=== PATIENT | male | born 1995 | race Hispanic/Latino ===

== ENCOUNTER 2018-03-01 13:16 | Emergency (ER) | payer SELFPAY ==
[2018-03-01 14:09] LABS: #Basophils 0.1 thou/uL (0.0-0.2); #Eosinphils 0.1 thou/uL (0.0-0.7); #Lymphocytes 1.7 thou/uL (1.20-3.40); #Neutrophils 8.3 thou/uL (1.40-6.50); %Basophils 0.7 % (0.0-1.0); %Eosinophils 0.5 % (0.0-10.0); %Lymphocytes 15.1 % (21.0-51.0); %Monocytes 8.8 % (0.0-10.0); %Neutrophils 74.8 % (42.0-75.0); Hemoglobin 16.2 g/dL (14.0-18.0); Mean Corpuscular HGB CONC 33.9 g/dL (32.0-36.0); Mean Corpuscular Hemoglobin 30.6 pg (27.0-31.0); Mean Corpuscular Volume 90.3 fL (78.0-98.0); Mean Platelet Volume 7.9 fL (7.4-10.4); Platelet Count 308 thou/uL (130-400); RBC Distribution Width 12.2 % (11.5-14.5)
[2018-03-01 14:29] LABS: Bilirubin Small (Negative); Blood, Urine Small (Negative); Clarity TURBID (Clear); Glucose, Urine (Dipstick) Negative (Negative); Leukocyte Small (Negative); Nitrite Negative (Negative); Protein, Urine (Dipstick) 300 mg/dL (Neg-Trace); Specific Gravity, Urine 1.031 (1.002-1.036)
[2018-03-01 14:31] LABS: ALT (SGPT) 59 U/L (8-55); AST (SGOT) 48 U/L (5-34); Albumin 5.4 g/dL (3.5-5.0); Alkaline Phosphatase 89 U/L (40-150); Anion Gap 19 mmol/L (10-20); BUN (Urea Nitrogen) 22 mg/dL (8.9-20.6); Bilirubin, Total 1.2 mg/dL (0.2-1.2); CK (CPK) 671 U/L (30-200); Calc. Creatinine Clearance 0 mL/min (70-130); Calcium 10.3 mg/dL (7.8-10.44); Carbon Dioxide 19 mmol/L (22-29); Chloride 102 mmol/L (98-107); Estimated GFR-MDRD 44; Globulin 3.6 g/dL (2.4-3.5); Glucose 116 mg/dL (70-105); Lipase 20 U/L (8-78); Potassium 3.7 mmol/L (3.5-5.1); Sodium 136 mmol/L (136-145)
[2018-03-01 14:32] LABS: Bacteria/HPF None Seen HPF (None Seen)
[2018-03-01 14:33] LABS: Pathc Cast-AUWi Flag 27.91 (0-2.49); Yeast-AUWi Flag 27.4 (0-25.0)
[2018-03-01 14:42] LABS: Hyaline Casts/LPF >50 HYALINE CAST LPF (0-3 Hyaline); RBC/HPF 0-3 HPF (0-3)
[2018-03-01 14:43] LABS: Crystals/HPF 1+ AMORPH URATES HPF (Negative)
[2018-03-01 14:44] LABS: Renal Epithelial None Seen HPF (0-3); Transitional Epithelial NONE SEEN HPF (0-3)
== END 2018-03-01 16:26 | disposition home or self-care (01) ==
LOC: ERS 13:16
DX: T67.5XXA Heat exhaustion, unspecified, initial encounter (principal); N28.9 Disorder of kidney and ureter, unspecified
CPT/HCPCS: 36415; 80053; 81003; 81015; 82550; 83690; 85025; 96360; 96361

== ENCOUNTER 2019-04-03 14:57 | Emergency (ER) | payer SELFPAY ==
[2019-04-03 15:27] LABS: #Basophils 0.1 thou/uL (0.0-0.2); #Eosinphils 0.1 thou/uL (0.0-0.7); #Lymphocytes 2.3 thou/uL (1.20-3.40); #Monocytes 0.5 thou/uL (0.11-0.59); #Neutrophils 2.9 thou/uL (1.40-6.50); %Basophils 1.3 % (0.0-1.0); %Eosinophils 2.5 % (0.0-10.0); %Lymphocytes 39.3 % (21.0-51.0); %Monocytes 8.3 % (0.0-10.0); %Neutrophils 48.6 % (42.0-75.0); Hemoglobin 15.8 g/dL (14.0-18.0); Mean Corpuscular HGB CONC 34.1 g/dL (32.0-36.0); Mean Corpuscular Hemoglobin 29.9 pg (27.0-31.0); Mean Corpuscular Volume 87.7 fL (78.0-98.0); Mean Platelet Volume 10.4 fL (7.4-10.4); Platelet Count 203 thou/uL (130-400); RBC Distribution Width 11.7 % (11.5-14.5); White Blood Cell (WBC) Count 5.9 thou/uL (4.8-10.8)
[2019-04-03 15:47] LABS: ALT (SGPT) 39 U/L (8-55); AST (SGOT) 27 U/L (5-34); Albumin 4.7 g/dL (3.5-5.0); Alkaline Phosphatase 60 U/L (40-150); Anion Gap 14 mmol/L (10-20); BUN (Urea Nitrogen) 4 mg/dL (8.9-20.6); Bilirubin, Total 0.6 mg/dL (0.2-1.2); Calc. Creatinine Clearance 0 mL/min (70-130); Calcium 9.7 mg/dL (7.8-10.44); Carbon Dioxide 25 mmol/L (22-29); Chloride 104 mmol/L (98-107); Estimated GFR-MDRD Greater than 90; Globulin 3.1 g/dL (2.4-3.5); Glucose 118 mg/dL (70-105); Lipase 22 U/L (8-78); Potassium 3.1 mmol/L (3.5-5.1); Protein, Total 7.8 g/dL (6.0-8.3); Sodium 140 mmol/L (136-145)
[2019-04-03] MEDS ORDERED: Potassium Chloride 20 MEQ TAB ONE (18:20)
[2019-04-03 18:26] LABS: Bacteria/HPF None Seen HPF (None Seen); Bilirubin Negative (Negative); Blood, Urine Trace (Negative); Clarity Turbid (Clear); Glucose, Urine (Dipstick) Normal (Negative); Leukocyte Negative Leu/uL (Negative); Nitrite Negative (Negative); Protein, Urine (Dipstick) 200 mg/dL (Neg-Trace); Squamous Epithelial 0-3 HPF (0-3); Urobilinogen 3 mg/dL (Less than 2)
--- NOTE | 2019-04-03 19:24 | CT ---
CT ABDOMEN AND PELVIS: 04/03/2019 HISTORY: Right upper quadrant pain. Epigastric pain. COMPARISON: 08/08/2013 TECHNIQUE: Axial CT imaging at 5 mm intervals, from the lung bases through the pubic symphysis, without contrast . Coronal reformatted imaging obtained. FINDINGS: The lack of contrast media limits assessment of the viscera, bowel, and vascular structures, and for lymphadenopathy. The imaged lung bases are unremarkable. There is no free intraperitoneal air. There is hypodensity within the anterior aspect of the liver, along the course of the falciform ligam ent, suggesting a focal area of fatty infiltration. Cholecystectomy clips are present. The spleen, pancreas, adrenal glands, and kidneys appear unremarkable. No evidence for nephrolithiasis or obstru ctive uropathy. There is a focal area of mild sigmoid colonic wall thickening. There is diverticulosis in this regio n. In addition, there is mild stranding of the adjacent pericolonic fat. This is suspicious for mil d sigmoid diverticulitis. No evidence for bowel obstruction. The appendix is unremarkable. Review of the osseous structures demonstrates no acute findings. IMPRESSION: Findings suggesting mild acute sigmoid diverticulitis. No evidence for nephrolithiasis or obstructiv e uropathy. POS: [facility]
== END 2019-04-03 19:45 | disposition home or self-care (01) ==
LOC: ERS 14:57
DX: K57.32 Diverticulitis of large intestine without perforation or abscess without bleeding (principal); E87.6 Hypokalemia; R31.9 Hematuria, unspecified; F41.9 Anxiety disorder, unspecified
CPT/HCPCS: 36415; 74176; 80053; 81003; 81015; 83690; 85025; 87086; 96360

== ENCOUNTER 2019-06-27 14:51 | Emergency (ER) | payer SELFPAY ==
--- NOTE | 2019-06-27 15:49 | RAD ---
Portable frontal chest radiograph: 06/27/2019 COMPARISON: None HISTORY: Intermittent chest pain FINDINGS: Lungs are clear. Heart and mediastinal contours appear within normal limits. IMPRESSION: No acute findings.
[2019-06-27 15:57] LABS: #Basophils 0.1 thou/uL (0.0-0.2); #Eosinphils 0.1 thou/uL (0.0-0.7); #Lymphocytes 1.7 thou/uL (1.20-3.40); #Monocytes 0.7 thou/uL (0.11-0.59); #Neutrophils 4.9 thou/uL (1.40-6.50); %Basophils 0.8 % (0.0-1.0); %Eosinophils 0.8 % (0.0-10.0); %Lymphocytes 23.2 % (21.0-51.0); %Monocytes 8.9 % (0.0-10.0); %Neutrophils 66.3 % (42.0-75.0); Mean Corpuscular HGB CONC 33.6 g/dL (32.0-36.0); Mean Corpuscular Hemoglobin 30.6 pg (27.0-31.0); Mean Corpuscular Volume 91.1 fL (78.0-98.0); Mean Platelet Volume 8.6 fL (7.4-10.4); Platelet Count 186 thou/uL (130-400); White Blood Cell (WBC) Count 7.4 thou/uL (4.8-10.8)
[2019-06-27 16:16] LABS: ALT (SGPT) 21 U/L (8-55); AST (SGOT) 22 U/L (5-34); Albumin 4.5 g/dL (3.5-5.0); Alkaline Phosphatase 76 U/L (40-110); Anion Gap 14 mmol/L (10-20); BUN (Urea Nitrogen) 10 mg/dL (8.9-20.6); Bilirubin, Total 0.9 mg/dL (0.2-1.2); CK (CPK) 110 U/L (30-200); Calc. Creatinine Clearance 0 mL/min (70-130); Calcium 9.5 mg/dL (7.8-10.44); Carbon Dioxide 26 mmol/L (22-29); Chloride 100 mmol/L (98-107); Estimated GFR-MDRD Greater than 90; Globulin 2.8 g/dL (2.4-3.5); Glucose 100 mg/dL (70-105); Lipase 12 U/L (8-78); Potassium 3.3 mmol/L (3.5-5.1); Protein, Total 7.3 g/dL (6.0-8.3); Sodium 137 mmol/L (136-145)
== END 2019-06-27 16:43 | disposition home or self-care (01) ==
LOC: ERS 14:51
DX: R07.9 Chest pain, unspecified (principal); F41.9 Anxiety disorder, unspecified
CPT/HCPCS: 36415; 71045; 80053; 82550; 83690; 83880; 84484; 85025; 93005; 94760

== ENCOUNTER 2020-07-04 22:30 | Emergency (ER) | payer SELFPAY ==
[2020-07-04] MEDS ORDERED: Lorazepam 2 MG/ML VIAL ONE (23:49)
[2020-07-05 00:02] LABS: Acetaminophen Less than 6.0 mcg/mL (10.0-30.0); Alcohol Less than 10 mg/dL (Less than 10); Salicylate Less than 8.0 mg/dL (15.0-30.0)
[2020-07-05 00:12] LABS: Amphetamine Detected (NotDetected); Barbiturates Screen Not Detected (NotDetected); Benzodiazepine Screen Not Detected (NotDetected); Cocaine Metabolite Screen Detected (NotDetected); Medtox Control Line Valid? VALID (VALID); Medtox Reader # READER 4; Methadone Not Detected (NotDetected); Methamphetamine Detected (NotDetected); Opiate Screen Not Detected (NotDetected); Oxycodone Screen Not Detected (NotDetected); Phencyclidine (PCP) Not Detected (NotDetected); THC/Cannabinoid Screen Detected (NotDetected); Tricyclic Screen Not Detected (NotDetected)
[2020-07-05 01:43] LABS: Hemoglobin 16.2 g/dL (14.0-18.0); Mean Corpuscular HGB CONC 35.1 g/dL (32.0-36.0); Mean Corpuscular Hemoglobin 31.7 pg (27.0-31.0); Mean Corpuscular Volume 90.4 fL (78.0-98.0); Mean Platelet Volume 9.3 fL (7.4-10.4); Platelet Count 156 thou/uL (130-400); RBC Distribution Width 13.1 % (11.5-14.5)
[2020-07-05 01:45] LABS: ALT (SGPT) 97 U/L (8-55); AST (SGOT) 408 U/L (5-34); Albumin 4.5 g/dL (3.5-5.0); Alkaline Phosphatase 60 U/L (40-110); Anion Gap 24 mmol/L (10-20); BUN (Urea Nitrogen) 28 mg/dL (8.9-20.6); Bilirubin, Total 1.8 mg/dL (0.2-1.2); Calc. Creatinine Clearance 0 mL/min (70-130); Carbon Dioxide 14 mmol/L (22-29); Chloride 97 mmol/L (98-107); Estimated GFR-MDRD 37; Globulin 3.5 g/dL (2.4-3.5); Glucose 74 mg/dL (70-105); Sodium 132 mmol/L (136-145)
[2020-07-05 01:53] LABS: Band 10 % (5-11); Eosinophils 1 % (0-10); Lymphocytes 23 % (21-51); MDiff Complete? YES; Monocytes 9 % (0-10); Neutrophil 56 % (42-75); White Blood Cell (WBC) Count 20.7 thou/uL (4.8-10.8)
[2020-07-05 02:39] LABS: Bacteria/HPF None Seen HPF (None Seen); Bilirubin Negative (Negative); Blood, Urine 3+ (Negative); Clarity Turbid (Clear); Glucose, Urine (Dipstick) Normal (Negative); Ketone, Urine 60 mg/dL (Negative); Leukocyte Negative Leu/uL (Negative); Nitrite Negative (Negative); Protein, Urine (Dipstick) 100 mg/dL (Neg-Trace); RBC/HPF 0-3 HPF (0-3); Specific Gravity, Urine 1.019 (1.002-1.036); Squamous Epithelial 0-3 HPF (0-3); Urobilinogen Normal mg/dL (Less than 2); pH, Urine 5.5 (5.0-9.0)
[2020-07-05] MEDS ORDERED: Lorazepam 2 MG/ML VIAL ONE (03:28)
[2020-07-05 12:47] LABS: SARS-CoV-2 MS2 Positive; SARS-CoV-2 N Gene Negative; SARS-CoV-2 S Gene Negative; SARS-CoV-2 by NAA Not Detected (NotDetected); SARS-CoV-2 orf1ab Negative
--- NOTE | 2020-07-06 13:13 | EKG ---
Test Reason : Blood Pressure : / mmHG Vent. Rate : 098 BPM Atrial Rate : 098 BPM P-R Int : 152 ms QRS Dur : 088 ms QT Int : 356 ms P-R-T Axes : 070 129 072 degrees QTc Int : 454 ms Normal sinus rhythm Right axis deviation Abnormal ECG Confirmed by GUADALUPE HEATH ([id number]), continuity editor MERCED BRYAN ([id number]) on 07/06/2020 1:13:05 PM Referred By: Confirmed By:GUADALUPE HEATH
== END 2020-07-05 04:04 | disposition short-term general hospital (02) ==
LOC: ERS 22:30
DX: M62.82 Rhabdomyolysis (principal); E86.0 Dehydration; F19.10 Other psychoactive substance abuse, uncomplicated; Z20.828 Contact with and (suspected) exposure to other viral communicable diseases; F41.9 Anxiety disorder, unspecified
CPT/HCPCS: 36415; 80053; 80306; 80307; 81003; 81015; 82550; 84443; 85025; 87635; 93005; 96374; 96376; J2060; U0003

== ENCOUNTER 2022-04-17 15:11 | Inpatient (IN) | payer SELFPAY ==
[2022-04-17] MEDS ORDERED: Iopamidol-370 76% 500 ML 1 ML ONE (15:26)
[2022-04-17 15:58] LABS: Hemoglobin 12.2 g/dL (14.0-18.0); Mean Corpuscular HGB CONC 32.2 g/dL (32.0-36.0); Mean Corpuscular Hemoglobin 28.8 pg (27.0-31.0); Mean Corpuscular Volume 89.5 fL (78.0-98.0); Mean Platelet Volume 9.5 fL (7.4-10.4); Platelet Count 402 thou/uL (130-400); RBC Distribution Width 12.9 % (11.5-14.5); Red Blood Cell (RBC) Count 4.24 mill/uL (4.70-6.10); White Blood Cell (WBC) Count 17.7 thou/uL (4.8-10.8)
[2022-04-17 16:18] LABS: ALT (SGPT) 30 U/L (8-55); AST (SGOT) 45 U/L (5-34); Albumin 3.4 g/dL (3.5-5.0); Alkaline Phosphatase 166 U/L (40-110); Anion Gap 18 mmol/L (10-20); BUN (Urea Nitrogen) 7 mg/dL (8.9-20.6); Calc. Creatinine Clearance 0 mL/min (70-130); Calcium 9.1 mg/dL (7.8-10.44); Carbon Dioxide 28 mmol/L (22-29); Chloride 95 mmol/L (98-107); Estimated GFR 112; Globulin 4.5 g/dL (2.4-3.5); Glucose 148 mg/dL (70-105); Lipase 14 U/L (8-78); Potassium 3.5 mmol/L (3.5-5.1); Protein, Total 7.9 g/dL (6.0-8.3); Sodium 137 mmol/L (136-145)
[2022-04-17 16:19] LABS: Band 2 % (5-11); Lymphocytes 8 % (21-51); MDiff Complete? YES; Monocytes 9 % (0-10); Neutrophil 80 % (42-75); Platelet Morphology Comment Appears Increased; RBC Morphology Normal
[2022-04-17] MEDS ORDERED: Ketorolac Tromethamine 30 MG/ML VIAL ONE (17:24)
[2022-04-17] MEDS ORDERED: Ondansetron PF 4 MG/2 ML Vial ONE (17:24)
[2022-04-17] MEDS ORDERED: Morphine 4 MG/ML VIAL ONE (18:10)
[2022-04-17] MEDS ORDERED: Piperacillin/Tazobactam 4.5 GM VIAL ONE (18:10)
[2022-04-17] MEDS: Lactated Ringer's 1,000 ML IV SCH (20:49)
[2022-04-17] MEDS: Famotidine 20 MG TAB PO SCH (21:02)
[2022-04-17 21:05] LABS: SARS-CoV-2 NAA Rapid Test Not Detected (NotDetected)
[2022-04-17 21:09] VITALS: BMI 33.7
[2022-04-17] MEDS: Morphine 2 MG/ML VIAL SLOW IVP PRN (21:55)
[2022-04-17] MEDS: Piperacillin/Tazobactam 3.375 GM in Sodium Chloride 0.9% 100 ML IVPB SCH (21:58)
[2022-04-18] MEDS: Acetaminophen 325 MG TAB PO PRN ×3 (01:48→20:39)
[2022-04-18] MEDS ORDERED: Morphine 4 MG/ML VIAL SLOW IVP SCH (03:00)
[2022-04-18] MEDS: Lactated Ringer's 1,000 ML IV SCH ×3 (04:15→19:34)
[2022-04-18 05:38] LABS: #Lymphocytes 1.9 thou/uL (1.20-3.40); #Monocytes 1.5 thou/uL (0.11-0.59); #Neutrophils 10.1 thou/uL (1.40-6.50); %Eosinophils 0.3 % (0.0-10.0); %Lymphocytes 14.2 % (21.0-51.0); %Neutrophils 74.5 % (42.0-75.0); Mean Corpuscular HGB CONC 32.2 g/dL (32.0-36.0); Mean Corpuscular Hemoglobin 28.9 pg (27.0-31.0); Mean Corpuscular Volume 89.8 fL (78.0-98.0); Mean Platelet Volume 9.1 fL (7.4-10.4); Platelet Count 338 thou/uL (130-400); RBC Distribution Width 12.7 % (11.5-14.5); Red Blood Cell (RBC) Count 3.46 mill/uL (4.70-6.10); White Blood Cell (WBC) Count 13.5 thou/uL (4.8-10.8)
[2022-04-18] MEDS: Piperacillin/Tazobactam 3.375 GM in Sodium Chloride 0.9% 100 ML IVPB SCH ×3 (05:42→22:04)
[2022-04-18 06:04] LABS: ALT (SGPT) 28 U/L (8-55); AST (SGOT) 36 U/L (5-34); Albumin 2.7 g/dL (3.5-5.0); Alkaline Phosphatase 156 U/L (40-110); Anion Gap 17 mmol/L (10-20); BUN (Urea Nitrogen) 6 mg/dL (8.9-20.6); Bilirubin, Total 0.7 mg/dL (0.2-1.2); Calc. Creatinine Clearance 218 mL/min (70-130); Calcium 8.2 mg/dL (7.8-10.44); Carbon Dioxide 26 mmol/L (22-29); Chloride 98 mmol/L (98-107); Estimated GFR 128; Globulin 3.5 g/dL (2.4-3.5); Glucose 92 mg/dL (70-105); Potassium 3.5 mmol/L (3.5-5.1); Protein, Total 6.2 g/dL (6.0-8.3); Sodium 137 mmol/L (136-145)
[2022-04-18] MEDS: Famotidine 20 MG TAB PO SCH ×2 (08:33→20:40)
[2022-04-18] MEDS: Morphine 2 MG/ML VIAL SLOW IVP PRN (08:33)
[2022-04-18] MEDS ORDERED: Enoxaparin Sodium 40 MG/0.4 ML SYRINGE SC SCH (09:00)
[2022-04-18 10:30] LABS: INR-International Normal Ratio 1.7; Prothrombin Time 20.4 sec (12.0-14.7)
[2022-04-18] MEDS: oxyCODONE ER 10 MG TAB PO PRN (12:00)
[2022-04-18 18:40] LABS: Troponin I Less than 0.010 ng/mL (< 0.028)
[2022-04-18] MEDS: Ondansetron ODT 4 MG TAB PO PRN (19:34)
[2022-04-18] MEDS: oxyCODONE 5 MG TAB PO PRN (20:40)
[2022-04-19] MEDS: Lactated Ringer's 1,000 ML IV SCH ×4 (05:18→21:10)
[2022-04-19] MEDS: Ibuprofen 600 MG TAB PO PRN ×2 (05:20→17:30)
[2022-04-19 05:36] LABS: #Lymphocytes 1.8 thou/uL (1.20-3.40); #Monocytes 1.5 thou/uL (0.11-0.59); #Neutrophils 9.1 thou/uL (1.40-6.50); %Basophils 0.2 % (0.0-1.0); %Eosinophils 0.2 % (0.0-10.0); %Lymphocytes 14.7 % (21.0-51.0); %Monocytes 11.8 % (0.0-10.0); %Neutrophils 73.2 % (42.0-75.0); Hemoglobin 9.6 g/dL (14.0-18.0); Mean Corpuscular HGB CONC 32.1 g/dL (32.0-36.0); Mean Corpuscular Volume 90.4 fL (78.0-98.0); Mean Platelet Volume 9.3 fL (7.4-10.4); Platelet Count 321 thou/uL (130-400); Red Blood Cell (RBC) Count 3.32 mill/uL (4.70-6.10); White Blood Cell (WBC) Count 12.5 thou/uL (4.8-10.8)
[2022-04-19 06:00] LABS: ALT (SGPT) 21 U/L (8-55); AST (SGOT) 30 U/L (5-34); Albumin 2.7 g/dL (3.5-5.0); Alkaline Phosphatase 124 U/L (40-110); Anion Gap 15 mmol/L (10-20); BUN (Urea Nitrogen) Less than 4 mg/dL (8.9-20.6); Bilirubin, Total 0.5 mg/dL (0.2-1.2); Calc. Creatinine Clearance 231 mL/min (70-130); Calcium 8.2 mg/dL (7.8-10.44); Carbon Dioxide 27 mmol/L (22-29); Chloride 100 mmol/L (98-107); Estimated GFR 130; Globulin 3.5 g/dL (2.4-3.5); Glucose 100 mg/dL (70-105); Potassium 3.4 mmol/L (3.5-5.1); Protein, Total 6.2 g/dL (6.0-8.3); Sodium 139 mmol/L (136-145)
[2022-04-19] MEDS: oxyCODONE ER 10 MG TAB PO PRN ×2 (06:16→21:23)
[2022-04-19] MEDS: Piperacillin/Tazobactam 3.375 GM in Sodium Chloride 0.9% 100 ML IVPB SCH ×3 (06:17→21:11)
[2022-04-19] MEDS: Famotidine 20 MG TAB PO SCH ×2 (09:33→21:10)
[2022-04-19] MEDS: Ondansetron ODT 4 MG TAB PO PRN (10:31)
[2022-04-19] MEDS: oxyCODONE 5 MG TAB PO PRN ×3 (10:31→23:11)
[2022-04-19] MEDS: diphenhydrAMINE 25 MG CAP PO PRN ×2 (13:21→21:23)
[2022-04-19] MEDS ORDERED: Midazolam HCl 2 mg/2 ml Vial ONE (18:19)
[2022-04-19] MEDS ORDERED: Fentanyl 100 MCG/2 ML VIAL ONE (18:19)
[2022-04-19] MEDS: Acetaminophen 325 MG TAB PO PRN (22:59)
[2022-04-20] MEDS: oxyCODONE 5 MG TAB PO PRN ×3 (03:52→16:08)
[2022-04-20] MEDS: Lactated Ringer's 1,000 ML IV SCH (03:55)
[2022-04-20 05:32] LABS: #Lymphocytes 1.6 thou/uL (1.20-3.40); #Monocytes 1.3 thou/uL (0.11-0.59); #Neutrophils 14.5 thou/uL (1.40-6.50); %Basophils 0.2 % (0.0-1.0); %Eosinophils 0.1 % (0.0-10.0); %Lymphocytes 9.3 % (21.0-51.0); %Monocytes 7.2 % (0.0-10.0); %Neutrophils 83.2 % (42.0-75.0); Hemoglobin 10.6 g/dL (14.0-18.0); Mean Corpuscular HGB CONC 31.5 g/dL (32.0-36.0); Mean Platelet Volume 9.2 fL (7.4-10.4); Platelet Count 329 thou/uL (130-400); RBC Distribution Width 12.9 % (11.5-14.5); Red Blood Cell (RBC) Count 3.66 mill/uL (4.70-6.10); White Blood Cell (WBC) Count 17.4 thou/uL (4.8-10.8)
[2022-04-20 05:57] LABS: ALT (SGPT) 37 U/L (8-55); AST (SGOT) 55 U/L (5-34); Albumin 2.9 g/dL (3.5-5.0); Alkaline Phosphatase 140 U/L (40-110); Anion Gap 16 mmol/L (10-20); BUN (Urea Nitrogen) Less than 4 mg/dL (8.9-20.6); Bilirubin, Total 0.8 mg/dL (0.2-1.2); Calc. Creatinine Clearance 227 mL/min (70-130); Calcium 8.5 mg/dL (7.8-10.44); Carbon Dioxide 23 mmol/L (22-29); Chloride 99 mmol/L (98-107); Estimated GFR 129; Globulin 3.6 g/dL (2.4-3.5); Glucose 84 mg/dL (70-105); Potassium 3.4 mmol/L (3.5-5.1); Protein, Total 6.5 g/dL (6.0-8.3); Sodium 135 mmol/L (136-145)
[2022-04-20] MEDS: Piperacillin/Tazobactam 3.375 GM in Sodium Chloride 0.9% 100 ML IVPB SCH ×3 (06:10→22:19)
[2022-04-20] MEDS: Acetaminophen 325 MG TAB PO PRN ×3 (06:17→19:57)
[2022-04-20] MEDS: Ibuprofen 600 MG TAB PO PRN (07:58)
[2022-04-20] MEDS: Famotidine 20 MG TAB PO SCH ×2 (07:58→20:58)
[2022-04-20] MEDS: oxyCODONE ER 10 MG TAB PO SCH (20:58)
[2022-04-20] MEDS ORDERED: oxyCODONE ER 10 MG TAB PO SCH ×2 (21:00)
[2022-04-21] MEDS: diphenhydrAMINE 25 MG CAP PO PRN (01:24)
[2022-04-21] MEDS: Ondansetron ODT 4 MG TAB PO PRN ×2 (01:24→20:44)
[2022-04-21] MEDS: Ibuprofen 600 MG TAB PO PRN (04:31)
[2022-04-21 05:20] LABS: #Lymphocytes 2.3 thou/uL (1.20-3.40); #Monocytes 1.2 thou/uL (0.11-0.59); #Neutrophils 15.5 thou/uL (1.40-6.50); %Basophils 0.1 % (0.0-1.0); %Eosinophils 0.2 % (0.0-10.0); %Lymphocytes 12.1 % (21.0-51.0); %Monocytes 6.3 % (0.0-10.0); %Neutrophils 81.3 % (42.0-75.0); Hemoglobin 9.4 g/dL (14.0-18.0); Mean Corpuscular HGB CONC 31.9 g/dL (32.0-36.0); Mean Corpuscular Volume 90.7 fL (78.0-98.0); Mean Platelet Volume 8.4 fL (7.4-10.4); Platelet Count 355 thou/uL (130-400); RBC Distribution Width 12.9 % (11.5-14.5); Red Blood Cell (RBC) Count 3.25 mill/uL (4.70-6.10); White Blood Cell (WBC) Count 19.1 thou/uL (4.8-10.8)
[2022-04-21 05:40] LABS: ALT (SGPT) 30 U/L (8-55); AST (SGOT) 30 U/L (5-34); Albumin 2.5 g/dL (3.5-5.0); Alkaline Phosphatase 114 U/L (40-110); Anion Gap 16 mmol/L (10-20); BUN (Urea Nitrogen) Less than 4 mg/dL (8.9-20.6); Bilirubin, Total 0.6 mg/dL (0.2-1.2); Calc. Creatinine Clearance 241 mL/min (70-130); Calcium 8.2 mg/dL (7.8-10.44); Carbon Dioxide 26 mmol/L (22-29); Chloride 99 mmol/L (98-107); Estimated GFR 132; Globulin 3.4 g/dL (2.4-3.5); Glucose 88 mg/dL (70-105); Potassium 3.6 mmol/L (3.5-5.1); Protein, Total 5.9 g/dL (6.0-8.3); Sodium 137 mmol/L (136-145)
[2022-04-21] MEDS: oxyCODONE 5 MG TAB PO PRN ×3 (05:49→21:24)
[2022-04-21] MEDS: Piperacillin/Tazobactam 3.375 GM in Sodium Chloride 0.9% 100 ML IVPB SCH ×3 (05:50→22:22)
[2022-04-21] MEDS: oxyCODONE ER 10 MG TAB PO SCH ×2 (08:26→21:22)
[2022-04-21] MEDS: Famotidine 20 MG TAB PO SCH ×2 (08:27→20:44)
[2022-04-21] MEDS ORDERED: Polyethylene Glycol 3350 17 GM Packet PO PRN (13:02)
[2022-04-21] MEDS ORDERED: Senokot 8.6 MG TAB PO PRN (13:02)
[2022-04-21] MEDS: metroNIDAZOLE 500 MG in Premix Bag 1 BAG IVPB SCH ×2 (13:36→22:22)
[2022-04-21] MEDS: Acetaminophen 325 MG TAB PO PRN (20:44)
[2022-04-22] MEDS: Ibuprofen 600 MG TAB PO PRN (04:09)
[2022-04-22 05:01] LABS: #Eosinphils 0.1 thou/uL (0.0-0.7); #Lymphocytes 2.2 thou/uL (1.20-3.40); #Monocytes 1.1 thou/uL (0.11-0.59); #Neutrophils 11.6 thou/uL (1.40-6.50); %Basophils 0.2 % (0.0-1.0); %Eosinophils 0.5 % (0.0-10.0); %Lymphocytes 14.7 % (21.0-51.0); %Monocytes 7.4 % (0.0-10.0); %Neutrophils 77.2 % (42.0-75.0); Hemoglobin 9.5 g/dL (14.0-18.0); Mean Corpuscular Volume 90.8 fL (78.0-98.0); Mean Platelet Volume 8.4 fL (7.4-10.4); Platelet Count 378 thou/uL (130-400); RBC Distribution Width 12.8 % (11.5-14.5); Red Blood Cell (RBC) Count 3.26 mill/uL (4.70-6.10)
[2022-04-22 05:28] LABS: ALT (SGPT) 23 U/L (8-55); AST (SGOT) 24 U/L (5-34); Albumin 2.5 g/dL (3.5-5.0); Alkaline Phosphatase 101 U/L (40-110); Anion Gap 15 mmol/L (10-20); BUN (Urea Nitrogen) Less than 4 mg/dL (8.9-20.6); Bilirubin, Total 0.5 mg/dL (0.2-1.2); Calc. Creatinine Clearance 249 mL/min (70-130); Carbon Dioxide 27 mmol/L (22-29); Chloride 98 mmol/L (98-107); Estimated GFR 133; Globulin 3.4 g/dL (2.4-3.5); Glucose 93 mg/dL (70-105); Potassium 3.4 mmol/L (3.5-5.1); Protein, Total 5.9 g/dL (6.0-8.3); Sodium 137 mmol/L (136-145)
[2022-04-22] MEDS: metroNIDAZOLE 500 MG in Premix Bag 1 BAG IVPB SCH ×3 (06:08→19:40)
[2022-04-22] MEDS: Piperacillin/Tazobactam 3.375 GM in Sodium Chloride 0.9% 100 ML IVPB SCH (06:09)
[2022-04-22] MEDS: Famotidine 20 MG TAB PO SCH ×2 (09:58→22:03)
[2022-04-22] MEDS: oxyCODONE ER 10 MG TAB PO SCH (10:02)
[2022-04-22] MEDS: oxyCODONE 5 MG TAB PO PRN ×2 (10:03→17:29)
[2022-04-22] MEDS: diphenhydrAMINE 25 MG CAP PO PRN ×2 (12:21→22:04)
[2022-04-22] MEDS: Ampicillin/Sulbactam 3 GM in Sodium Chloride 0.9% 100 ML IVPB SCH ×3 (12:21→23:38)
[2022-04-22] MEDS ORDERED: GASTROGRAFIN 30 ML BOT ONE (13:20)
[2022-04-22] MEDS ORDERED: Iopamidol 370 76% 100 ML VIAL ONE (13:20)
[2022-04-22] MEDS ORDERED: Potassium Chloride 20 MEQ TAB PO SCH (14:30)
[2022-04-22] MEDS: Acetaminophen 500 MG TAB PO SCH ×2 (15:33→22:06)
[2022-04-22] MEDS: Ibuprofen 600 MG TAB PO SCH ×2 (15:34→22:05)
[2022-04-23] MEDS: metroNIDAZOLE 500 MG in Premix Bag 1 BAG IVPB SCH ×3 (01:39→17:59)
[2022-04-23] MEDS: oxyCODONE 5 MG TAB PO PRN ×2 (02:46→09:24)
[2022-04-23] MEDS: Ibuprofen 600 MG TAB PO SCH ×3 (05:22→22:00)
[2022-04-23] MEDS: Acetaminophen 500 MG TAB PO SCH ×3 (05:23→21:59)
[2022-04-23] MEDS: Ampicillin/Sulbactam 3 GM in Sodium Chloride 0.9% 100 ML IVPB SCH ×4 (05:24→23:17)
[2022-04-23 05:37] LABS: #Eosinphils 0.1 thou/uL (0.0-0.7); #Lymphocytes 1.2 thou/uL (1.20-3.40); #Monocytes 0.8 thou/uL (0.11-0.59); #Neutrophils 12.4 thou/uL (1.40-6.50); %Basophils 0.1 % (0.0-1.0); %Eosinophils 0.7 % (0.0-10.0); %Lymphocytes 8.5 % (21.0-51.0); %Monocytes 5.8 % (0.0-10.0); %Neutrophils 84.9 % (42.0-75.0); Hemoglobin 10.6 g/dL (14.0-18.0); Mean Corpuscular HGB CONC 31.1 g/dL (32.0-36.0); Mean Corpuscular Hemoglobin 28.6 pg (27.0-31.0); Mean Corpuscular Volume 92.2 fL (78.0-98.0); Mean Platelet Volume 8.7 fL (7.4-10.4); Platelet Count 434 thou/uL (130-400); RBC Distribution Width 12.8 % (11.5-14.5); Red Blood Cell (RBC) Count 3.71 mill/uL (4.70-6.10); White Blood Cell (WBC) Count 14.6 thou/uL (4.8-10.8)
[2022-04-23 06:01] LABS: Albumin 2.6 g/dL (3.5-5.0); Alkaline Phosphatase 104 U/L (40-110); Anion Gap 16 mmol/L (10-20); BUN (Urea Nitrogen) Less than 4 mg/dL (8.9-20.6); Bilirubin, Total 0.5 mg/dL (0.2-1.2); Calc. Creatinine Clearance 253 mL/min (70-130); Calcium 8.4 mg/dL (7.8-10.44); Carbon Dioxide 26 mmol/L (22-29); Chloride 101 mmol/L (98-107); Estimated GFR 134; Globulin 3.9 g/dL (2.4-3.5); Glucose 101 mg/dL (70-105); Potassium 4.3 mmol/L (3.5-5.1); Protein, Total 6.5 g/dL (6.0-8.3); Sodium 139 mmol/L (136-145)
[2022-04-23 06:15] LABS: ALT (SGPT) 21 U/L (8-55); AST (SGOT) 25 U/L (5-34)
[2022-04-23] MEDS: Famotidine 20 MG TAB PO SCH ×2 (09:11→20:21)
[2022-04-23] MEDS: Polyethylene Glycol 3350 17 GM Packet PO SCH (09:11)
[2022-04-23] MEDS: Ondansetron ODT 4 MG TAB PO PRN (09:24)
[2022-04-23] MEDS ORDERED: oxyCODONE 5 MG TAB PO PRN (14:07)
[2022-04-23] MEDS ORDERED: Acetaminophen 500 MG TAB PO SCH (14:15)
[2022-04-23] MEDS: diphenhydrAMINE 25 MG CAP PO PRN (22:00)
[2022-04-24] MEDS: metroNIDAZOLE 500 MG in Premix Bag 1 BAG IVPB SCH ×2 (00:17→08:40)
[2022-04-24] MEDS: Ampicillin/Sulbactam 3 GM in Sodium Chloride 0.9% 100 ML IVPB SCH (05:06)
[2022-04-24] MEDS: Acetaminophen 500 MG TAB PO SCH ×2 (05:06→13:21)
[2022-04-24] MEDS: Ibuprofen 600 MG TAB PO SCH ×2 (05:07→13:22)
[2022-04-24 05:14] LABS: #Eosinphils 0.1 thou/uL (0.0-0.7); #Lymphocytes 2.8 thou/uL (1.20-3.40); #Monocytes 1.2 thou/uL (0.11-0.59); #Neutrophils 8.8 thou/uL (1.40-6.50); %Basophils 0.1 % (0.0-1.0); %Eosinophils 0.9 % (0.0-10.0); %Lymphocytes 21.5 % (21.0-51.0); %Neutrophils 68.5 % (42.0-75.0); Hemoglobin 11.4 g/dL (14.0-18.0); Mean Corpuscular HGB CONC 31.3 g/dL (32.0-36.0); Mean Corpuscular Hemoglobin 28.8 pg (27.0-31.0); Mean Corpuscular Volume 91.9 fL (78.0-98.0); Mean Platelet Volume 8.2 fL (7.4-10.4); Platelet Count 471 thou/uL (130-400); RBC Distribution Width 13.1 % (11.5-14.5); Red Blood Cell (RBC) Count 3.96 mill/uL (4.70-6.10); White Blood Cell (WBC) Count 12.9 thou/uL (4.8-10.8)
[2022-04-24 05:40] LABS: ALT (SGPT) 17 U/L (8-55); AST (SGOT) 14 U/L (5-34); Albumin 2.8 g/dL (3.5-5.0); Alkaline Phosphatase 99 U/L (40-110); Anion Gap 14 mmol/L (10-20); BUN (Urea Nitrogen) 4 mg/dL (8.9-20.6); Bilirubin, Total 0.5 mg/dL (0.2-1.2); Calc. Creatinine Clearance 253 mL/min (70-130); Calcium 8.5 mg/dL (7.8-10.44); Carbon Dioxide 25 mmol/L (22-29); Chloride 103 mmol/L (98-107); Estimated GFR 134; Globulin 3.6 g/dL (2.4-3.5); Glucose 85 mg/dL (70-105); Potassium 3.8 mmol/L (3.5-5.1); Protein, Total 6.4 g/dL (6.0-8.3); Sodium 138 mmol/L (136-145)
[2022-04-24] MEDS: Famotidine 20 MG TAB PO SCH (08:40)
[2022-04-24] MEDS: Polyethylene Glycol 3350 17 GM Packet PO SCH (08:40)
[2022-04-24 08:47] VITALS: BP 130/84; TEMP 97.9
[2022-04-24] MEDS ORDERED: Enoxaparin Sodium 40 MG/0.4 ML SYRINGE SC SCH (09:00)
[2022-04-24] MEDS ORDERED: metroNIDAZOLE 500 MG TAB PO SCH (15:00)
[2022-04-24] MEDS ORDERED: Ciprofloxacin 500 MG TAB PO SCH (20:00)
[2022-04-24] MEDS ORDERED: Amoxicillin/Potassium Clav 875 MG TAB PO SCH (21:00)
== END 2022-04-24 14:14 | disposition home or self-care (01) | DRG 871 ==
LOC: ERS 15:11 → MSONC 18:25
PROVIDERS: ADMIT Student in an Organized Health Care Education/Training Program; ATTEND Student in an Organized Health Care Education/Training Program
PROC: 3E03329 Introduction of Other Anti-infective into Peripheral Vein, Percutaneous Approach (ICD-10-PCS; principal; 2022-04-17)
PROC: 0F923ZZ Drainage of Left Lobe Liver, Percutaneous Approach (ICD-10-PCS; 2022-04-23)
DX: A41.9 Sepsis, unspecified organism (principal); K75.0 Abscess of liver; K57.20 Diverticulitis of large intestine with perforation and abscess without bleeding; K86.1 Other chronic pancreatitis; Z20.822 Contact with and (suspected) exposure to COVID-19; F41.9 Anxiety disorder, unspecified; Z90.49 Acquired absence of other specified parts of digestive tract
CPT/HCPCS: 36415; 47010; 71045; 74177; 77002; 80053; 83605; 83690; 84484; 85025; 85610; 85730; 87040; 87070; 87077; 87177; 87186; 87205; 87328; 87329; 87811; 96361; 96365; 96375; C1729; J0295; J1650; J1885; J2250; J2270; J2405; J2543; J3010; J3490; J7120; Q0162; Q9963; Q9967; U0002

== ENCOUNTER 2022-06-01 15:20 | Inpatient (IN) | payer SELFPAY ==
[~2022-06-01 15:20] MED LIST: Iopamidol 370 76% 50 ML VIAL FS ONE
[2022-06-01 16:06] LABS: #Eosinphils 0.3 thou/uL (0.0-0.7); #Monocytes 0.7 thou/uL (0.11-0.59); #Neutrophils 8.2 thou/uL (1.40-6.50); %Basophils 0.3 % (0.0-1.0); %Eosinophils 2.6 % (0.0-10.0); %Lymphocytes 17.8 % (21.0-51.0); %Monocytes 6.1 % (0.0-10.0); %Neutrophils 73.3 % (42.0-75.0); Hemoglobin 9.7 g/dL (14.0-18.0); Mean Corpuscular HGB CONC 31.9 g/dL (32.0-36.0); Mean Corpuscular Hemoglobin 28.5 pg (27.0-31.0); Mean Corpuscular Volume 89.5 fL (78.0-98.0); Mean Platelet Volume 8.4 fL (7.4-10.4); Platelet Count 356 thou/uL (130-400); RBC Distribution Width 13.6 % (11.5-14.5); White Blood Cell (WBC) Count 11.2 thou/uL (4.8-10.8)
[2022-06-01 16:15] LABS: ALT (SGPT) 10 U/L (8-55); AST (SGOT) 17 U/L (5-34); Albumin 3.7 g/dL (3.5-5.0); Alkaline Phosphatase 96 U/L (40-110); Anion Gap 13 mmol/L (10-20); BUN (Urea Nitrogen) 5 mg/dL (8.9-20.6); Bilirubin, Total 0.3 mg/dL (0.2-1.2); Calc. Creatinine Clearance 0 mL/min (70-130); Calcium 8.8 mg/dL (7.8-10.44); Carbon Dioxide 26 mmol/L (22-29); Chloride 104 mmol/L (98-107); Estimated GFR 124; Glucose 123 mg/dL (70-105); Potassium 4.1 mmol/L (3.5-5.1); Protein, Total 7.7 g/dL (6.0-8.3); Sodium 139 mmol/L (136-145)
[2022-06-01] MEDS ORDERED: Piperacillin/Tazobactam 3.375 GM VIAL ONE (22:30)
[2022-06-01] MEDS ORDERED: Sodium Chloride 0.9% 1,000 ML IV SCH (22:45)
[2022-06-01] MEDS ORDERED: Ondansetron PF 4 MG/2 ML Vial IVP PRN (22:45)
[2022-06-01] MEDS ORDERED: Ondansetron ODT 4 MG TAB SL PRN (22:45)
[2022-06-02] MEDS ORDERED: Ondansetron ODT 4 MG TAB PO PRN (00:48)
[2022-06-02] MEDS ORDERED: Ondansetron PF 4 MG/2 ML Vial IVP PRN (00:48)
[2022-06-02] MEDS ORDERED: hydrOXYzine 25 MG TAB PO SCH (01:00)
[2022-06-02 01:59] VITALS: BMI 32.4
[2022-06-02] MEDS: Acetaminophen 325 MG TAB PO PRN ×2 (02:28→20:40)
[2022-06-02] MEDS: Piperacillin/Tazobactam 3.375 GM in Sodium Chloride 0.9% 100 ML IVPB SCH ×3 (02:29→18:15)
[2022-06-02] MEDS: Lactated Ringer's 1,000 ML IV SCH ×3 (02:31→18:15)
[2022-06-02] MEDS ORDERED: Piperacillin/Tazobactam 3.375 GM in Sodium Chloride 0.9% 100 ML IVPB SCH (03:00)
[2022-06-02 06:13] LABS: #Eosinphils 0.5 thou/uL (0.0-0.7); #Lymphocytes 2.9 thou/uL (1.20-3.40); #Monocytes 0.9 thou/uL (0.11-0.59); #Neutrophils 5.5 thou/uL (1.40-6.50); %Basophils 0.3 % (0.0-1.0); %Eosinophils 4.7 % (0.0-10.0); %Lymphocytes 29.5 % (21.0-51.0); %Monocytes 9.1 % (0.0-10.0); %Neutrophils 56.4 % (42.0-75.0); Hemoglobin 8.8 g/dL (14.0-18.0); Mean Corpuscular Hemoglobin 28.1 pg (27.0-31.0); Mean Corpuscular Volume 90.5 fL (78.0-98.0); Mean Platelet Volume 7.9 fL (7.4-10.4); Platelet Count 330 thou/uL (130-400); RBC Distribution Width 13.8 % (11.5-14.5); Red Blood Cell (RBC) Count 3.15 mill/uL (4.70-6.10); White Blood Cell (WBC) Count 9.8 thou/uL (4.8-10.8)
[2022-06-02 06:23] LABS: ALT (SGPT) 8 U/L (8-55); AST (SGOT) 12 U/L (5-34); Albumin 3.2 g/dL (3.5-5.0); Alkaline Phosphatase 70 U/L (40-110); Anion Gap 13 mmol/L (10-20); BUN (Urea Nitrogen) 6 mg/dL (8.9-20.6); Bilirubin, Total 0.3 mg/dL (0.2-1.2); Calc. Creatinine Clearance 207 mL/min (70-130); Calcium 8.9 mg/dL (7.8-10.44); Carbon Dioxide 25 mmol/L (22-29); Chloride 106 mmol/L (98-107); Estimated GFR 126; Globulin 3.3 g/dL (2.4-3.5); Glucose 97 mg/dL (70-105); Potassium 4.1 mmol/L (3.5-5.1); Protein, Total 6.5 g/dL (6.0-8.3); Sodium 140 mmol/L (136-145)
[2022-06-02 06:37] LABS: Troponin I Less than 0.010 ng/mL (< 0.028)
[2022-06-02] MEDS: hydrOXYzine 25 MG TAB PO PRN (20:41)
[2022-06-03] MEDS: Lactated Ringer's 1,000 ML IV SCH (01:29)
[2022-06-03] MEDS: Piperacillin/Tazobactam 3.375 GM in Sodium Chloride 0.9% 100 ML IVPB SCH ×3 (02:16→18:11)
[2022-06-03 06:12] LABS: #Basophils 0.1 thou/uL (0.0-0.2); #Eosinphils 0.4 thou/uL (0.0-0.7); #Lymphocytes 2.7 thou/uL (1.20-3.40); #Monocytes 0.7 thou/uL (0.11-0.59); %Basophils 0.8 % (0.0-1.0); %Eosinophils 5.7 % (0.0-10.0); %Lymphocytes 34.3 % (21.0-51.0); %Monocytes 8.4 % (0.0-10.0); %Neutrophils 50.8 % (42.0-75.0); Hemoglobin 8.4 g/dL (14.0-18.0); Mean Corpuscular HGB CONC 31.5 g/dL (32.0-36.0); Mean Corpuscular Hemoglobin 28.6 pg (27.0-31.0); Mean Corpuscular Volume 90.7 fL (78.0-98.0); Mean Platelet Volume 7.6 fL (7.4-10.4); Platelet Count 334 thou/uL (130-400); RBC Distribution Width 13.8 % (11.5-14.5); Red Blood Cell (RBC) Count 2.93 mill/uL (4.70-6.10); White Blood Cell (WBC) Count 7.9 thou/uL (4.8-10.8)
[2022-06-03 06:56] LABS: ALT (SGPT) 11 U/L (8-55); AST (SGOT) 11 U/L (5-34); Alkaline Phosphatase 65 U/L (40-110); Anion Gap 11 mmol/L (10-20); BUN (Urea Nitrogen) 5 mg/dL (8.9-20.6); Bilirubin, Total 0.2 mg/dL (0.2-1.2); Calc. Creatinine Clearance 191 mL/min (70-130); Calcium 8.6 mg/dL (7.8-10.44); Carbon Dioxide 28 mmol/L (22-29); Chloride 107 mmol/L (98-107); Estimated GFR 123; Glucose 99 mg/dL (70-105); Potassium 3.7 mmol/L (3.5-5.1); Sodium 142 mmol/L (136-145)
[2022-06-03] MEDS: Acetaminophen 325 MG TAB PO PRN ×2 (11:55→18:20)
[2022-06-03] MEDS: hydrOXYzine 25 MG TAB PO PRN (18:30)
[2022-06-03 23:07] VITALS: BP 128/80; TEMP 98.3
[2022-06-05] MEDS ORDERED: FLU VACC QS2022-23(6MOS UP)/PF 60 MCG/0.5 ML SYRINGE IM ONE (09:00)
== END 2022-06-03 23:00 | disposition home or self-care (01) | DRG 392 ==
LOC: ERS 15:20 → ERHOLD 22:39 → T4-A 06-02 01:42 → OBSVTOIN 06-02 08:37
PROVIDERS: ADMIT Family Medicine; ATTEND Family Medicine
DX: K57.20 Diverticulitis of large intestine with perforation and abscess without bleeding (principal); K21.9 Gastro-esophageal reflux disease without esophagitis; Z20.822 Contact with and (suspected) exposure to COVID-19; F41.9 Anxiety disorder, unspecified; D64.9 Anemia, unspecified; Z79.899 Other long term (current) drug therapy; Z90.49 Acquired absence of other specified parts of digestive tract
CPT/HCPCS: 36415; 74177; 80053; 83605; 84484; 85025; 87070; 87077; 87186; 87205; 93005; 96374; 96376; G0378; J2543; J3490; J7120; Q9967; U0003; U0005

== ENCOUNTER 2024-05-13 10:10 | Emergency (ER) | payer OTHER ==
[2024-05-13 11:44] LABS: Influenza A by NAA Not Detected (NotDetected); Influenza B by NAA Not Detected (NotDetected); SARS-CoV-2 NAA Rapid Test Not Detected (NotDetected)
== END 2024-05-13 12:00 | disposition home or self-care (01) ==
LOC: ERS 10:10
DX: J06.9 Acute upper respiratory infection, unspecified (principal); B97.89 Other viral agents as the cause of diseases classified elsewhere
CPT/HCPCS: 71046